=== PATIENT | male | born 1965 | race Caucasian/White ===

== ENCOUNTER 2017-04-20 18:25 | Emergency (ER) | payer OTHER ==
[~2017-04-20] VITALS: Ht 188 cm; Wt 87.7 kg
--- NOTE | 2017-04-20 19:27 | [facility] Report ---
History of Present Issue Date/Time Seen by Provider 04/20/171915 Visit Reason Pt arrived:Wheelchair Presenting Problem:PT STATES PULLING MUSCLE TO THE LEFT LOWER SIDE OF HIS BACK TWO DAYS AGO AND HAS HAD PAIN SINCE Location if Accident: Onset of symptoms date/time:04/18/17/ or onset unknown for:MEDICAL HX UNKNOWN Have you (or family members/close friends) recently traveled outside the [place]? N If Yes, where/when: Have you had exposure to infectious disease within the past month? TB? Other? Specify: c/o "I know I pulled a muscle and it is my sciatica again". Burning "juan horse type pain" starting left lower lumbar region and radiating into left buttock, around to left hip, left posterior thigh, into knee ending at heel. Started Sunday, 4 days ago. Reports he was replacing shoes on a donkey and the donkey was resisting. "I felt him pull me and it felt like something pulled in my back". Denies any fall or trauma from the donkey. "He just pulled me the wrong way". hx of same type of pain multiple times in the past. Last time one year ago. Typically improves with ice, heat, exercises, aleve. This is just lasting longer. 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 Less work today. Came home early and fell asleep in recliner. Woke up in worse pain. Aleve helps. Last dose early this morning. Old left over "probably " narcotic this afternoon as also helped "somewhat". Denies any limitations in ROM, no N/T, no incontinence or difficulty stooling or urinating. Was brought here today by nephew but and daughter present as well. "He tolerates pain very well. he is not one to seek medical treatment for pain." reports. Source patient, family Exam Limitations no limitations ALLERGIES Coded Allergies: No Known Allergies (04/20/17) Home Medications Reported Medications No Known Home Medications History Medical History General CAD? No Angina: No LA: No Hypertension? No Hyperlipidemia? No CHF? No DVT? No PE? No COPD? No Asthma? No Anemia? No GERD? No Gastric ulcers? No GI Bleed? No Hernia? No Thyroid Problems? No Hypothyroidism? No CVA? No Seizures? No Diabetes? No Renal Insuffiency? No UTI? No Stones? No BPH? No GB Disease: No Nephritic Syndrome? No Asplenia? No Hepatitis? No Sickle Cell Disease? No Arthritis? No Migraines? No Cataracts? No Glaucoma? No MRSA? No HIV? No TB? No Anxiety? No Depression? No Cancer? No Immunization HX DT/Tetanus Unknown Surgical Hx Previous Surgery?N Social History Smoking Hx Smoker: Never Smoker Tobacco: No Alcohol Alcohol: No Review of Systems All Other Systems Reviewed and Negative Constitutional denies fever, denies malaise, denies weakness Genitourinary denies: dysuria, frequency. Musculoskeletal see HPI Skin denies change in color, denies lesions, denies lumps Psychiatric/Neurological see HPI Physical Exam Vital Signs Vital Signs Date Time Temp Pulse Resp B/P Pulse O2 O2 Flow FiO2 Ox Delivery Rate 04/20 1932 20 04/20 1853 98.5 72 20 160/99 96 General Appearance mild distress, appeared uncomfortable in w/c while in waiting room, sounded uncomfortable moving from waiting room to exam room, appeared more comfortable once resting in exam chair Respiratory Status No: respiratory distress. Cardiovascular no peripheral edema Peripheral Pulses Pulses normal Yes (PT/DP) Back normal inspection, no CVA tenderness, no vertebral tenderness, gait abnormality (slow, shuffled), strt leg raising(L)-NML, strt leg raising(R)-NML, mild tenderness left SI joint Extremities non-tender (BLE), normal range of motion (BLE), normal inspection ( BLE) Strength 5 Lower Ext (L), 5 Lower Ext (R) Neurologic alert, no motor/sensory deficits, oriented x 3 Reflexes Reflexes normal Yes (patellar) Skin normal color, warm/dry Medical Decision Making LABS/Meds/Orders Pt receiving controlled substance in ED? No Results/Orders Current Medication Orders Sig/Teressa Start time Last Medication Dose Route Stop Time Status Admin Ketorolac 60 MG ONCE ONE 04/20 1930 DC 04/20 Tromethamine IM 04/20 Ketorolac 0 .STK-MED ONE 04/20 1930 DC Tromethamine .ROUTE Orphenadrine Citrate 60 MG ONCE ONE 04/20 1930 DC 04/20 IM 04/20 Orphenadrine Citrate 0 .STK-MED ONE 04/20 1930 DC .ROUTE Progress [facility] Progress Notes Date 04/20/17 Time 2006 Comment reports starting to get sleeping. Pain still present but "somewhat" improved. No longer radiating to heel and instead, stops at knee now. Rvwd POC Departure Departure Time of Disposition 2006 Disposition DC Home or Self Care(routine) Clinical Impression Primary Impression: Left-sided low back pain with sciatica Qualifiers: Chronicity: acute Sciatica laterality: sciatica of left side Qualified Code: M54.42 - Lumbago with sciatica, left side Condition STABLE Referrals NO REFERRAL Due to your provider retiring, we have provided you with a list of providers accepting patients. I would encourage you find him a new primary care provider and make an appt CALLI as it can take weeks to get a new patient appointment. In the meantime, follow up in the clinic or ER for new, worsening or persistent symptoms. Patient Instructions DI for Low Back Pain, DI for Sciatica Additional Instructions * naproxen every 12 hours with meal as needed for pain/inflammation. Next dose no sooner than 1:30am. * Remember you had a toradol shot, similiar anti-inflammatory in clinic * No additional anti-inflammatories like motrin, aleve, advil with the above amount of naproxen. You CAN still take Tylenol every 4 hours as needed if you need something more for pain. * Ice x15-20 mins 3-4 times a day for first 48 hours after the initial injury followed by moist heat x15-20 mins 3-4 times a day to affected area * Muscle relaxer every 8 hours as needed for muscle spasms but remember, it WILL cause drowsiness. Start with 1/2 tablet and work up to 1 full tablet if necessary and you tolerate it ok. You can NOT take it and drive, operate [facility] or care for small children. REMEMBER you had a muscle relaxer shot in clinic so no additional muscle relaxer until after 2am. * Keep this area active. No movement leads to more stiffness. However, take it easy too and avoid heavy lifting, pushing, pulling. * biofreeze may also help Discharge Counseling Counseled pt/family regarding diagnosis, medications/RX, home care, follow up needs Prescriptions Current Visit Scripts NAPROXEN (NAPROSYN 500MG TAB) 500 MG PO BID #28 TAB take with food Cyclobenzaprine Hcl (Flexeril) 5-10 MG PO TIDP PRN muscle spasms/pain #9 TAB will cause drowsiness at 2012
[2017-04-20] MEDS ORDERED: FLEXERIL10 MG PO (20:12)
[2017-04-20] MEDS ORDERED: NAPROSYN 500MG500 MG PO (20:12)
[2017-04-20 20:15] VITALS: BP 160/99
== END 2017-04-20 20:16 | disposition home or self-care (01) ==
LOC: UTC 18:25
DX: M54.42 Lumbago with sciatica, left side (principal)